=== PATIENT | male | born 1965 | race Two or more races ===

== ENCOUNTER 2022-01-17 04:08 | Day surgery (SDC) | payer BC, OTHER ==
[2022-01-13 16:10] VITALS: BMI 32.6
[2022-01-17] MEDS ORDERED: MIDAZOLAM HCL 2 MG/2 ML SINGLE DOSE VIAL ONE (10:48)
[2022-01-17] MEDS ORDERED: oxyCODONE HCL 5 MG TABLET PO PRN (11:33)
[2022-01-17] MEDS ORDERED: ONDANSETRON 4 MG/2 ML VIAL IVPUSH PRN (11:33)
[2022-01-17] MEDS ORDERED: ACETAMINOPHEN 325 MG TABLET (FP) PO PRN (11:33)
[2022-01-17] MEDS ORDERED: LACTATED RINGERS SOLUTION 1,000 ML IV SCH (11:45)
[2022-01-17 12:41] VITALS: BP 120/86; PULSE 68; TEMP 97.7
== END 2022-01-17 12:35 | disposition home or self-care (01) ==
LOC: JASU-SURG 04:08
PROVIDERS: ATTEND Urology
PROC: 0TF3XZZ Fragmentation in Right Kidney Pelvis, External Approach (ICD-10-PCS; principal; 2022-01-17 11:00)
DX: N20.0 Calculus of kidney (principal)

== ENCOUNTER 2022-03-06 10:51 | Emergency (ER) | payer BC, OTHER ==
[2022-03-06 11:24] VITALS: TEMP 98.3; BMI 31.9
[2022-03-06] MEDS ORDERED: diazePAM 5 MG TABLET PO ONE (11:45)
[2022-03-06] MEDS ORDERED: KETOROLAC TROMETHAMINE 30 MG/1 ML VIAL IM ONE (11:45)
[2022-03-06] MEDS ORDERED: LIDOCAINE 5% TOPICAL PATCH TP ONE (11:46)
[2022-03-06] MEDS ORDERED: LIDOCAINE 5% TOPICAL PATCH ONE (12:02)
[2022-03-06] MEDS ORDERED: KETOROLAC TROMETHAMINE 30 MG/1 ML VIAL ONE (12:03)
[2022-03-06] MEDS ORDERED: diazePAM 5 MG TABLET ONE (12:03)
[2022-03-06 12:35] LABS: PH,URINE 5.5 (5.0-8.0); URINE APPEARANCE CLEAR; URINE BILIRUBIN NEGATIVE (NEGATIVE); URINE COLOR YELLOW; URINE GLUCOSE (UA) NEGATIVE (NEGATIVE); URINE KETONE TRACE (NEGATIVE); URINE LEUK ESTERASE NEGATIVE (NEGATIVE); URINE NITRITE NEGATIVE (NEGATIVE); URINE PROTEIN NEGATIVE (NEGATIVE); URINE UROBILINOGEN 0.2 mg/dL (0.2-1.0)
[2022-03-06] MEDS ORDERED: predniSONE 20 MG TABLET (UD) PO ONE (14:26)
[2022-03-06] MEDS ORDERED: predniSONE 20 MG TABLET (UD) ONE (14:35)
[2022-03-06 16:37] VITALS: BP 125/88; PULSE 79; RESP 20
[2022-03-06] MEDS ORDERED: LIDOCAINE PATCH REMOVAL MC SCH (22:00)
== END 2022-03-06 16:37 | disposition home or self-care (01) ==
LOC: JERFT 10:51
PROC: 3E0233Z Introduction of Anti-inflammatory into Muscle, Percutaneous Approach (ICD-10-PCS; principal; 2022-03-06)
DX: M54.50 Low back pain, unspecified (principal)
CPT/HCPCS: 72070-TC-FY; 72100-TC-FY; 81003; 87086; 99285-25